=== PATIENT | female | born 1955 | race Caucasian/White ===

== ENCOUNTER 2024-12-18 08:55 | Inpatient (IN) | payer OTHER ==
[~2024-12-18] VITALS: Ht 157.5 cm; Wt 59.4 kg
[2024-12-18] VITALS (34 sets, daily range): BP systolic 85–141; BP diastolic 52–75; PULSE 54–81; RESP 11–62; TEMP 36.696–36.8; O2SAT 93–99
[2024-12-18] MEDS: ACETAMINOPHEN 325MG TABLET PO ONE (11:21)
[2024-12-18] MEDS: LIDOCAINE 5% PATCH TOP STA (11:21)
[2024-12-18 13:21] LABS: BASOPHILS % 0.2 % (0.0-2.0); EOSINOPHILS % 0.1 % (0.0-5.0); HEMATOCRIT. 43.7 % (36.0-48.0); HEMOGLOBIN. 14.9 g/dL (12.0-16.0); LYMPHOCYTES % 26.9 % (20.0-50.0); MEAN PLATELET VOLUME 6.8 fl (7.4-10.4); MONOCYTES % 6.0 % (2.0-8.0); NEUTROPHILS % 66.8 % (40.0-76.0); PLATELET 243 x1000/uL (130-400); RED BLOOD CELL COUNT 4.57 mill/uL (4.2-5.4); RED CELL DISTRIBUTION WIDTH 13.2 % (11.6-14.6)
[2024-12-18 13:31] LABS: CREATININE 0.5 mg/dL (0.6-1.0); UREA NITROGEN BLOOD 6 mg/dL (9-23)
[2024-12-18] MEDS: LABETALOL 5MG/ML 4ML INJ IV ONE (13:38)
[2024-12-18] MEDS: LEVETIRACETAM 500MG PREMIX 100 ML IV ONE (13:38)
[2024-12-18] MEDS ORDERED: NICARDIPINE 100 MG in SODIUM CHLORIDE 0.9% 60 ML IV PRN (15:30)
[2024-12-18] MEDS ORDERED: MORPHINE SULFATE 2 MG/ML INJ (NOT FOR IM USE) IV PRN (15:30)
[2024-12-18] MEDS ORDERED: NALOXONE HCL 0.4MG/ML VIAL IV PRN (16:00)
[2024-12-18] MEDS: DEXT 5%/LACTATED RINGERS 1,000 ML IV SCH (17:06)
[2024-12-18] MEDS: DEXAMETHASONE 4MG/ML 1ML VIAL IV SCH (17:06)
[2024-12-18 18:52] LABS: INR 1.0
[2024-12-18] MEDS ORDERED: LEVETIRACETAM 500MG PREMIX 100 ML IV SCH (21:00)
[2024-12-18] MEDS ORDERED: LEVETIRACETAM 500MG/5ML CUP PO SCH (21:00)
[2024-12-18] MEDS: LEVETIRACETAM 500MG PREMIX 100 ML IV SCH (21:09)
[2024-12-18] MEDS ORDERED: ONDANSETRON HCL 4MG/2ML INJ IV PRN (23:15)
[2024-12-18] MEDS ORDERED: DEXAMETHASONE 4MG/ML 1ML VIAL IV SCH (23:59)
[2024-12-19] VITALS (56 sets, daily range): BP systolic 107–145; BP diastolic 46–106; PULSE 52–91; RESP 12–25; TEMP 36.7–36.8; O2SAT 91–100
[2024-12-19] MEDS ORDERED: NICARDIPINE 100 MG in SODIUM CHLORIDE 0.9% 60 ML IV PRN (00:30)
[2024-12-19] MEDS: FAMOTIDINE 20MG/2ML VIAL IV SCH (08:30)
[2024-12-19] MEDS ORDERED: PRAV10TA35 MT (11:06)
[2024-12-19] MEDS ORDERED: LOSA1TAB34 MT (11:06)
[2024-12-19] MEDS ORDERED: ASPI-1073 PO (11:06)
[2024-12-19] MEDS ORDERED: METO25TA6 MT (11:06)
== END 2024-12-19 15:15 | disposition home or self-care (01) | DRG 55 ==
LOC: ER 09:01 → MICUSO 13:32 → EDBEDREQ 13:39 → EDBEDREQTM 13:39 → ENRESERV 14:19
PROVIDERS: ADMIT Internal Medicine; ATTEND Internal Medicine
PROC: 0HQ0XZZ Repair Scalp Skin, External Approach (ICD-10-PCS; principal; 2024-12-18)
DX: S06.6XAA Traumatic subarachnoid hemorrhage with loss of consciousness status unknown, initial encounter (principal); E78.00 Pure hypercholesterolemia, unspecified; S01.01XA Laceration without foreign body of scalp, initial encounter; I10 Essential (primary) hypertension; W18.39XA Other fall on same level, initial encounter; Y93.89 Activity, other specified; Y92.89 Other specified places as the place of occurrence of the external cause; Y99.8 Other external cause status
CPT/HCPCS: 36415; 72131; 80048; 85025; 93005; 99291; J1100; J1308; J1953; J3490; J7121